=== PATIENT | male | born 2000 | race African-American/Black ===

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

== ENCOUNTER 2019-03-31 21:36 | Emergency (ER) | payer OTHER ==
[~2019-03-31] VITALS: Ht 175.3 cm; Wt 72.6 kg
[~2019-03-31 21:36] MED LIST changes: +HYDR-3165 PO; +PRED-220 PO
[2019-03-31 21:40] VITALS: BP 143/73
[2019-03-31] MEDS ORDERED: IBUP600T16 PO (22:47)
[2019-03-31] MEDS ORDERED: CYCL-331 PO (22:47)
--- NOTE | 2019-03-31 22:47 | PHYS DOC ---
Past History Past Medical History: No Pertinent History Past Surgical History: No Surgical History Smoking: Non-smoker Alcohol Use: Occasionally Drug Use: None Adult General Chief Complaint Chief Complaint: SHOULDER INJURY HPI HPI Patient is a 18 year old male who presents with complaint of right shoulder inj ury. The patient states that the injury took place shortly prior to arrival. The patient states that he was wrestling with a friend when he was thrown onto his right shoulder. He states he landed with all his weight on the right shoulder. [place] instant pain in the lateral portion of his right shoulder. Came to the emergency department as he is concerned he may have broken a possibly dislocated something in his shoulder. States he has slight numbness to the tips of his right fingers but denies any weakness or change in color. Is unable to move at the right shoulder secondary to sharp pain. Has noticed swelling to the top of the shoulder and notes pain along the muscles of the right shoulder and right side of the neck. Review of Systems Review of Systems Constitutional: Denies fever or chills [] Musculoskeletal: Right shoulder pain, right-sided neck pain[] Integument: Denies rash or skin lesions [] Neurologic: Denies headache, focal weakness or sensory changes [] All other systems were reviewed and found to be within normal limits, except as documented in this note. Allergies Allergies Allergies Coded Allergies Type Severity Reaction Last Updated Verified No Known Drug Allergies 01/16/15 No Physical Exam Physical Exam Constitutional: Well developed, well nourished, afebrile, appears in mild to moderate discomfort. [] HENT: Normocephalic, atraumatic, bilateral external ears normal, oropharynx moist, no oral exudates, nose normal. [] Eyes: PERRLA, EOMI, conjunctiva normal, no discharge. [] Neck: Normal range of motion, no midline tenderness, mild right paraspinous muscle tenderness with palpable muscle tension, supple, no stridor. [] Skin: Warm, dry, no erythema, no rash. [] Back: No tenderness, no CVA tenderness. [] Extremities: Swelling overlying right before meals joint with noticeable deformity, range of motion and right shoulder not tested secondary to pain, direct tenderness palpation over right before meals joint, capillary refill less than 2 seconds in all digits of right hand, pulses 2+, patient reports slight decrease in sensation to fingertips of right fourth and fifth digit. [] Neurologic: Alert and oriented X 3, normal motor function, normal sensory function, no focal deficits noted. [] Current Patient Data Vital Signs Vital signs were reviewed and are stable. Please refer to nursing notes for exact values. Lab Results Not performed EKG EKG Not performed[] Radiology/Procedures Radiology/Procedures 3 view right shoulder x-ray series interpreted by me: Acromioclavicular joint separation, no acute fractures, no humeral dislocation[] Course & Med Decision Making Course & Med Decision Making Pertinent Labs and Imaging studies reviewed. (See chart for details) X-rays show evidence of right shoulder separation. Placed in right shoulder sling. Numbness to finger tips and right hand likely neuropraxia secondary to injury. Referred to Dr. Akers of orthopedic surgery for follow-up in 7-10 days for reevaluation. Prescribed Flexeril and ibuprofen for outpatient treatment. Advised return to the emergency department for any worsening symptoms. Patient was understanding and in agreement with treatment plan.[] Dragon Disclaimer Dragon Disclaimer This electronic medical record was generated, in whole or in part, using a voice recognition dictation system. Departure Departure: Impression: Primary Impression: Shoulder separation Disposition: HOME, SELF-CARE Condition: STABLE Referrals: ROSARIO SMITH MD (PCP) BRITANY AKERS II, MD Patient Instructions: Shoulder Separation Additional Instructions: Call the office of Dr. Akers of orthopedic surgery for follow-up in the next 7- 10 days for reevaluation. Return to the emergency department for any worsening symptoms. Scripts Ibuprofen (IBUPROFEN) 600 Mg Tablet 600 MG PO Q6HRS PRN for PAIN, #30 TAB Prov: NITZA MÁRQUEZ MD 03/31/19 Cyclobenzaprine Hcl (CYCLOBENZAPRINE HCL) 10 Mg Tablet 1 TAB PO TID PRN for MUSCLE SPASMS, #30 TAB Prov: NITZA MÁRQUEZ MD 03/31/19 NITZA MÁRQUEZ MD Mar 31, 2019 22:47
--- NOTE | 2019-03-31 22:58 | RAD ---
SHOULDER 2+V RIGHT History: Injury. Right shoulder pain. Swelling. Technique: 3 views right shoulder. Comparison: None. Findings: Normal alignment of the glenohumeral and acromioclavicular joints. No fracture. Soft tissues unremarkable. Impression: 1. No acute osseous abnormality. Electronically signed by: Rico Talbot DO (03/31/2019 10:55 PM) [id number]
== END 2019-03-31 23:00 | disposition home or self-care (01) ==
LOC: ER 21:36
DX: S43.004A Unspecified dislocation of right shoulder joint, initial encounter (principal); W18.39XA Other fall on same level, initial encounter; Y93.72 Activity, wrestling; Y92.89 Other specified places as the place of occurrence of the external cause; Y99.8 Other external cause status
CPT/HCPCS: 73030; 99284